=== PATIENT | male | born 1960 | race African-American/Black ===

== ENCOUNTER → 2018-02-02 | Outpatient (REF) | payer OTHER ==
[2018-02-02 11:41] LABS: HEMATOCRIT 44.8 % (42.0-52.0); HEMOGLOBIN 14.1 g/dl (13.5-17.5); MEAN CORPUSCULAR HEMOGLOBIN 26.3 pg (27.0-33.0); MEAN CORPUSCULAR HGB CONC 31.5 g/dl (32.0-36.5); MEAN CORPUSCULAR VOLUME 83.6 fl (80.0-96.0); PLATELET COUNT, AUTOMATED 276 10^3/uL (150-450); RED BLOOD COUNT 5.36 10^6/uL (4.30-6.10); RED CELL DISTRIBUTION WIDTH 14.6 % (11.5-14.5); WHITE BLOOD COUNT 6.1 10^3/uL (4.0-10.0)
[2018-02-02 12:33] LABS: ALBUMIN 4.4 GM/DL (3.2-5.2); ALBUMIN/GLOBULIN RATIO 1.05 (1.00-1.93); ALKALINE PHOSPHATASE 67 U/L (45-117); ALT/SGPT 23 U/L (12-78); ANION GAP 11 MEQ/L (8-16); AST/SGOT 19 U/L (7-37); BILIRUBIN,TOTAL 1.6 MG/DL (0.2-1.0); BLOOD UREA NITROGEN 16 MG/DL (7-18); CALCIUM LEVEL 9.8 MG/DL (8.5-10.1); CARBON DIOXIDE LEVEL 28 MEQ/L (21-32); CHLORIDE LEVEL 104 MEQ/L (98-107); CREATININE FOR GFR 1.03 MG/DL (0.70-1.30); GLOMERULAR FILTRATION RATE > 60.0 (>56); GLUCOSE, FASTING 80 MG/DL (70-100); POTASSIUM SERUM 4.1 MEQ/L (3.5-5.1); SODIUM LEVEL 143 MEQ/L (136-145); TOTAL PROTEIN 8.6 GM/DL (6.4-8.2)
== END ==
LOC: M LAB REF 11:10
DX: R63.4 Abnormal weight loss (principal)

== ENCOUNTER → 2018-02-02 | Outpatient (CLI) | payer OTHER | LOC: M RAD 08:45 | DX: R63.4 Abnormal weight loss (principal); Z87.891 Personal history of nicotine dependence ==

== ENCOUNTER → 2018-02-19 | Outpatient (CLI) | payer OTHER ==
[~2018-02-19] MED LIST: GASTROGRAFIN SOLUTION 30ML (Q9963) As Ordered; ISOVUE-370 76% 100ML VIAL (Q9967) As Ordered
== END ==
LOC: M RAD 12:07
DX: R63.4 Abnormal weight loss (principal)

== ENCOUNTER 2018-12-08 14:51 | Emergency (ER) | payer OTHER ==
[~2018-12-08] VITALS: Ht 182.9 cm; Wt 75.0 kg
[2018-12-08] MEDS ORDERED: OMEP40CA2 PO (14:57)
[2018-12-08] MEDS ORDERED: NS 1,000 ML IV SCH (15:09)
[2018-12-08] MEDS ORDERED: GI COCKTAIL 50ML BTL(HYOSCYAMINE/MAALOX/LIDOCAINE VISCOUS)(1:3:1) PO ONE (15:15)
[2018-12-08] MEDS ORDERED: ASPIRIN 81 MG CHEW TABLET PO ONE (15:15)
[2018-12-08 15:36] LABS: BASO # 0.1 10^3/uL (0.0-0.2); BASO % 1.3 % (0.0-1.0); EOS % 0.6 % (0.0-3.0); HEMATOCRIT 38.3 % (42.0-52.0); HEMOGLOBIN 11.9 g/dl (13.5-17.5); LYMPH % 18.4 % (24.0-44.0); MEAN CORPUSCULAR HEMOGLOBIN 26.7 pg (27.0-33.0); MEAN CORPUSCULAR HGB CONC 31.1 g/dl (32.0-36.5); MEAN CORPUSCULAR VOLUME 86.1 fl (80.0-96.0); MONO # 0.4 10^3/uL (0.0-0.8); MONO % 7.6 % (0.0-5.0); NEUTROPHILS # 3.9 10^3/uL (1.8-7.7); NEUTROPHILS % 71.9 % (36.0-66.0); PLATELET COUNT, AUTOMATED 227 10^3/uL (150-450); RED BLOOD COUNT 4.45 10^6/uL (4.30-6.10); WHITE BLOOD COUNT 5.4 10^3/uL (4.0-10.0)
--- NOTE | 2018-12-08 15:40 | REP ---
Clinical: Acute chest pain . Comparison: 02/02/2018 . Findings: The mediastinum and cardiac silhouette are stable and within normal limits for portable technique. The lung childress are clear without acute consolidation, effusion, or pneumothorax. Skeletal structures are intact. Small chronic foreign body material overlying the right hemithorax. Impression: No acute cardiopulmonary process appreciated. Electronically Signed by Roger Vazquez MD 12/08/2018 03:31 P
[2018-12-08 15:47] LABS: INR 1.15; PROTHROMBIN TIME 14.9 SECONDS (12.1-14.4)
[2018-12-08 16:12] LABS: ALBUMIN 3.9 GM/DL (3.2-5.2); ALT/SGPT 19 U/L (12-78); BILIRUBIN,DIRECT 0.2 MG/DL (0.0-0.2); BILIRUBIN,TOTAL 0.8 MG/DL (0.2-1.0); BLOOD UREA NITROGEN 12 MG/DL (7-18); CALCIUM LEVEL 8.8 MG/DL (8.5-10.1); CARBON DIOXIDE LEVEL 28 MEQ/L (21-32); CHLORIDE LEVEL 106 MEQ/L (98-107); CK-MB VALUE MASS < 1.0 NG/ML (<3.6); CPK CREATINE PHOSPHOKINASE 191 U/L (39-308); CREATININE FOR GFR 0.92 MG/DL (0.70-1.30); GLOMERULAR FILTRATION RATE > 60.0 (>56); GLUCOSE, FASTING 85 MG/DL (70-100); LIPASE 64 U/L (73-393); MB/CK RELATIVE INDEX 0.52 (< OR =4); POTASSIUM SERUM 4.2 MEQ/L (3.5-5.1); SODIUM LEVEL 142 MEQ/L (136-145); TOTAL PROTEIN 7.4 GM/DL (6.4-8.2); TROPONIN I < 0.02 NG/ML (< 0.10)
[2018-12-08 17:22] VITALS: BP 132/77
--- NOTE | 2018-12-08 18:12 | ECGEPIP ---
Stationary ECG Study [facility] - ED Test Date: 2018-12-08 Pat Name: RAYMUNDO FOSTER Department: Room: - Gender: M Belt Puncher: : 1960 Requested By: Alondra Mix Order Number: [id number] Reading MD: Alondra Mix Measurements Intervals [place] Rate: 52 P: 58 MN: 192 QRS: 40 QRSD: 87 T: 18 QT: 420 QTc: 391 Interpretive Statements SINUS BRADYCARDIA POSSIBLE LEFT ATRIAL ENLARGEMENT NSTTW ABNORMALITY NO PRIOR FOR COMPARISON Electronically Signed On 12-08-2018 18:11:59 EDT by Alondra Mix
== END 2018-12-08 17:24 | disposition home or self-care (01) ==
LOC: M ED 14:51
DX: K21.9 Gastro-esophageal reflux disease without esophagitis (principal); R00.1 Bradycardia, unspecified; Z79.899 Other long term (current) drug therapy

== ENCOUNTER 2018-12-12 08:41 | Inpatient (IN) | payer OTHER ==
[~2018-12-12] VITALS: Ht 182.9 cm; Wt 69.4 kg
[~2018-12-12 08:41] MED LIST changes: -GASTROGRAFIN SOLUTION 30ML (Q9963) As Ordered; -ISOVUE-370 76% 100ML VIAL (Q9967) As Ordered; +OMEP40CA2 PO
[2018-12-12] MEDS ORDERED: AMLO25TA PO (09:01)
[2018-12-12] MEDS ORDERED: HYDR12.55 PO (09:01)
[2018-12-12] MEDS ORDERED: NS 1,000 ML IV ONE (09:30)
[2018-12-12 09:50] LABS: BASO # 0.1 10^3/uL (0.0-0.2); BASO % 0.3 % (0.0-1.0); HEMATOCRIT 42.5 % (42.0-52.0); LYMPH # 0.6 10^3/uL (1.5-4.5); LYMPH % 3.9 % (24.0-44.0); MEAN CORPUSCULAR HEMOGLOBIN 27.6 pg (27.0-33.0); MEAN CORPUSCULAR HGB CONC 32.9 g/dl (32.0-36.5); MEAN CORPUSCULAR VOLUME 83.7 fl (80.0-96.0); MONO # 1.3 10^3/uL (0.0-0.8); MONO % 8.5 % (0.0-5.0); NEUTROPHILS # 13.5 10^3/uL (1.8-7.7); NEUTROPHILS % 86.8 % (36.0-66.0); PLATELET COUNT, AUTOMATED 249 10^3/uL (150-450); RED BLOOD COUNT 5.08 10^6/uL (4.30-6.10); WHITE BLOOD COUNT 15.6 10^3/uL (4.0-10.0)
[2018-12-12 09:55] LABS: GLUCOSE, URINE (UA) MANUAL NEGATIVE (NEGATIVE); KETONE, URINE MANUAL 2+ mg/dL (NEGATIVE)
[2018-12-12 09:56] LABS: BILIRUBIN, URINE MANUAL 1+ (NEGATIVE); UROBILINOGEN, URINE MANUAL NORMAL (NORMAL)
[2018-12-12 10:07] LABS: RBC, URINE NONE SEEN /hpf (0-3)
[2018-12-12 10:08] LABS: BACTERIA, URINE SMALL AMOUNT; CALCIUM OXALATE CRYSTALS,URINE MOD AMOUNT /hpf; HYALINE CAST, URINE NONE SEEN /lpf (0-1); MUCUS, URINE LARGE AMOUNT (NEGATIVE); RENAL EPITHELIAL CELLS, URINE SMALL AMOUNT /hpf; SQUAMOUS EPITHELIAL CELL URINE SMALL AMOUNT /hpf (SMALL AMT); URIC ACID CRYSTALS, URINE SMALL AMOUNT /hpf
[2018-12-12 10:22] LABS: ALBUMIN 4.2 GM/DL (3.2-5.2); ALT/SGPT 18 U/L (12-78); BILIRUBIN,DIRECT 0.4 MG/DL (0.0-0.2); BILIRUBIN,TOTAL 1.9 MG/DL (0.2-1.0); BLOOD UREA NITROGEN 23 MG/DL (7-18); CALCIUM LEVEL 9.7 MG/DL (8.5-10.1); CARBON DIOXIDE LEVEL 30 MEQ/L (21-32); CHLORIDE LEVEL 105 MEQ/L (98-107); CK-MB VALUE MASS < 1.0 NG/ML (<3.6); CPK CREATINE PHOSPHOKINASE 164 U/L (39-308); CREATININE FOR GFR 0.99 MG/DL (0.70-1.30); GLOMERULAR FILTRATION RATE > 60.0 (>56); GLUCOSE, FASTING 79 MG/DL (70-100); LIPASE 80 U/L (73-393); MB/CK RELATIVE INDEX 0.61 (< OR =4); POTASSIUM SERUM 3.9 MEQ/L (3.5-5.1); SODIUM LEVEL 142 MEQ/L (136-145); TOTAL PROTEIN 7.8 GM/DL (6.4-8.2); TROPONIN I < 0.02 NG/ML (< 0.10)
[2018-12-12] MEDS ORDERED: ISOVUE-370 76% 100ML VIAL (Q9967) As Ordered ONE (10:35)
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
[2018-12-12 12:49] LABS: CK-MB VALUE MASS < 1.0 NG/ML (<3.6); CPK CREATINE PHOSPHOKINASE 138 U/L (39-308); MB/CK RELATIVE INDEX 0.72 (< OR =4); TROPONIN I < 0.02 NG/ML (< 0.10)
[2018-12-12] MEDS ORDERED: PIPERACILLIN/TAZOBACTAM SOD 3.375 GM in D5W MINI-BAG PLUS 50 ML IV ONE (13:00)
[2018-12-12] MEDS ORDERED: HYDR25TAB PO (13:12)
[2018-12-12] MEDS ORDERED: AMLO5TAB6 PO (13:12)
[2018-12-12] MEDS ORDERED: TUMS500C PO (13:12)
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
[2018-12-12] MEDS: PANTOPRAZOLE 40MG INJ (PROTONIX) (C9113) IV SCH (14:20)
[2018-12-12] MEDS: amLODIPine 5 MG TAB PO SCH (14:21)
[2018-12-12 14:29] LABS: INR 1.24; PROTHROMBIN TIME 15.8 SECONDS (12.1-14.4)
[2018-12-12 14:30] LABS: PARTIAL THROMBOPLASTIN TIME 30.9 SECONDS (25.4-37.6)
[2018-12-12 14:58] VITALS: BP 134/77
[2018-12-12] MEDS: KCL 20MEQ in NS 1000ML 1,000 ML IV SCH ×2 (15:51→22:01)
[2018-12-12 16:00] VITALS: BP 133/74
[2018-12-12 20:00] VITALS: BP 121/78
[2018-12-12] MEDS: PIPERACILLIN/TAZOBACTAM SOD 3.375 GM in D5W MINI-BAG PLUS 50 ML IV SCH (22:02)
[2018-12-12 23:59] VITALS: BP 114/60
[2018-12-13] MEDS: PIPERACILLIN/TAZOBACTAM SOD 3.375 GM in D5W MINI-BAG PLUS 50 ML IV SCH ×3 (02:00→14:41)
[2018-12-13 04:00] VITALS: BP 131/84
[2018-12-13 05:43] LABS: HEMATOCRIT 33.9 % (42.0-52.0); MEAN CORPUSCULAR HEMOGLOBIN 26.8 pg (27.0-33.0); MEAN CORPUSCULAR HGB CONC 32.2 g/dl (32.0-36.5); MEAN CORPUSCULAR VOLUME 83.5 fl (80.0-96.0); PLATELET COUNT, AUTOMATED 202 10^3/uL (150-450); RED BLOOD COUNT 4.06 10^6/uL (4.30-6.10); WHITE BLOOD COUNT 8.8 10^3/uL (4.0-10.0)
[2018-12-13 05:51] LABS: HEMOGLOBIN 10.9 g/dl (13.5-17.5)
[2018-12-13 06:00] LABS: ALBUMIN 3.2 GM/DL (3.2-5.2); ALT/SGPT 14 U/L (12-78); BILIRUBIN,TOTAL 1.6 MG/DL (0.2-1.0); BLOOD UREA NITROGEN 20 MG/DL (7-18); CARBON DIOXIDE LEVEL 27 MEQ/L (21-32); CHLORIDE LEVEL 111 MEQ/L (98-107); CREATININE FOR GFR 0.86 MG/DL (0.70-1.30); GLOMERULAR FILTRATION RATE > 60.0 (>56); GLUCOSE, FASTING 87 MG/DL (70-100); POTASSIUM SERUM 3.7 MEQ/L (3.5-5.1); SODIUM LEVEL 143 MEQ/L (136-145); TOTAL PROTEIN 6.3 GM/DL (6.4-8.2)
[2018-12-13] MEDS: KCL 20MEQ in NS 1000ML 1,000 ML IV SCH ×2 (06:04→12:26)
[2018-12-13 08:00] VITALS: BP 119/82
[2018-12-13] MEDS: PANTOPRAZOLE 40MG INJ (PROTONIX) (C9113) IV SCH (08:14)
[2018-12-13 08:17] VITALS: BP 119/82
[2018-12-13] MEDS: amLODIPine 5 MG TAB PO SCH (08:17)
[2018-12-13] MEDS ORDERED: DOCUSATE SODIUM 100 MG CAP PO SCH (09:00)
--- NOTE | 2018-12-13 09:03 | ECGEPIP ---
Stationary ECG Study [facility] - ED Test Date: 2018-12-12 Pat Name: RAYMUNDO FOSTER Department: Room: [place] [address] Gender: M Shingles Roofer Helper: : 1960 Requested By: DEEPA Remy PA-C Order Number: [id number] Reading MD: Alondra Mix Measurements Intervals [place] Rate: 79 P: 62 VT: 176 QRS: 0 QRSD: 92 T: 39 QT: 372 QTc: 429 Interpretive Statements SINUS RHYTHM POSSIBLE LEFT ATRIAL ENLARGEMENT LOW VOLTAGE LIMB MODERATE T-WAVE ABNORMALITY, CONSIDER ISCHEMIA, CLINICAL CORRELATION, NOT SEEN 12/08/18 Electronically Signed On 12-13-2018 9:03:41 EDT by Alondra Mix
[2018-12-13 12:00] VITALS: BP 132/78
[2018-12-13 12:22] LABS: HEMATOCRIT 36.5 % (42.0-52.0); HEMOGLOBIN 11.7 g/dl (13.5-17.5)
[2018-12-13 16:00] VITALS: BP 134/79
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
== END 2018-12-13 16:39 | disposition short-term general hospital (02) | DRG 243 ==
LOC: M ED 08:41 → M ED INP 12:42 → M PCU 15:14
PROVIDERS: ADMIT Family Medicine; ATTEND Internal Medicine
DX: K22.2 Esophageal obstruction (principal); J69.0 Pneumonitis due to inhalation of food and vomit; K22.0 Achalasia of cardia; I10 Essential (primary) hypertension; F17.200 Nicotine dependence, unspecified, uncomplicated; K21.9 Gastro-esophageal reflux disease without esophagitis; Z79.899 Other long term (current) drug therapy